=== PATIENT | male | born 1950 | race Caucasian/White ===

== ENCOUNTER → 2021-04-04 | Outpatient (CLI) | payer MEDICARE, OTHER ==
[~2021-04-04] MED LIST: ASPIR-LOW81 MG PO; BENADRYL 25MG C25 MG PO; CELEBREX 200MG200 MG PO; COLACE 100MG C100 MG PO; COZAAR25 MG PO; IMDUR ER TAB 6060 MG PO; LIPITOR TAB 2020 MG PO; LOPRESSOR 25 MG25 MG PO; NASAL SPRAY30 M2; NORCO 5-325 TA1 EACH PO; PAZEO2.5 ML OP; REFRESH LACRI-3.5 GM OP; THERA TEARS1 EACH OP
== END ==
LOC: RT 09:46
DX: I25.10 Atherosclerotic heart disease of native coronary artery without angina pectoris (principal); I10 Essential (primary) hypertension; I49.8 Other specified cardiac arrhythmias
CPT/HCPCS: 93005

== ENCOUNTER 2022-04-01 22:40 | Emergency (ER) | payer MEDICARE, OTHER ==
[2022-04-01 23:19] LABS: RED BLOOD COUNT 4.97 M/UL (4.20-5.50); WHITE BLOOD COUNT 7.4 K/UL (4.5-11.0)
[2022-04-02 00:01] LABS: BUN/CREATININE RATIO 17 (0-10)
[2022-04-02] MEDS ORDERED: MUCINEX600 MG PO (01:19)
[2022-04-02] MEDS ORDERED: MEDROL4 MG PO (01:24)
== END 2022-04-02 02:05 | disposition home or self-care (01) ==
LOC: ER1 22:40
PROVIDERS: Student in an Organized Health Care Education/Training Program
DX: U07.1 COVID-19 (principal); J98.01 Acute bronchospasm; I12.9 Hypertensive chronic kidney disease with stage 1 through stage 4 chronic kidney disease, or unspecified chronic kidney disease; N18.9 Chronic kidney disease, unspecified; Z90.89 Acquired absence of other organs; Z90.49 Acquired absence of other specified parts of digestive tract; Z88.6 Allergy status to analgesic agent
CPT/HCPCS: 0240U; 71045; 71250; 80053; 82550; 82553; 84484; 85025; 93005; 96374; 99284; J1100